=== PATIENT | female | born 1955 | race Two or more races ===

== ENCOUNTER 2025-01-19 12:39 | Inpatient (IN) | payer MEDICARE, OTHER ==
[~2025-01-19] VITALS: Ht 149.9 cm; Wt 56.7 kg
[2025-01-19 13:23] LABS: BASOPHILS # (AUTO) 0.5 K/UL (0.0-0.2); BASOPHILS % (AUTO) 3.8 % (0.0-2.0); DIFFERENTIAL COMMENT 0; EOSINOPHILS # (AUTO) 0.5 K/uL (0.0-0.7); EOSINOPHILS % (AUTO) 3.4 % (0.0-7.0); HEMATOCRIT 39.4 % (31.2-41.9); HEMOGLOBIN 13.1 g/dL (10.9-14.3); LYMPHOCYTES % (AUTO) 7.2 % (20.5-51.5); MEAN CORPUSCULAR HEMOGLOBIN 28.8 uug (24.7-32.8); MEAN CORPUSCULAR HGB CONC 33 g/dL (32.3-35.6); MEAN CORPUSCULAR VOLUME 86.5 fL (75.5-95.3); MONOCYTES # (AUTO) 1.1 K/uL (0.1-1.30); MONOCYTES % (AUTO) 7.8 % (0.0-11.0); NEUTROPHILS # (AUTO) 10.5 K/uL (1.8-8.9); NEUTROPHILS % (AUTO) 77.8 % (38.5-71.5); RED BLOOD CELL COUNT(AUTO) 4.55 MIL/uL (3.63-4.92); RED CELL DISTRIBUTION WIDTH 17.4 % (12.3-17.7); WHITE BLOOD COUNT (AUTO) 13.5 K/uL (3.8-11.8)
[2025-01-19 13:24] LABS: CALCIUM 10.3 mg/dL (8.5-10.1); CARBON DIOXIDE 29 mmol/L (21-32); CHLORIDE 95 mmol/L (98-107); CREATININE 5.4 mg/dL (0.6-1.3); GLUCOSE 92 mg/dL (74-106); POTASSIUM 4.2 mmol/L (3.5-5.1); SODIUM SERUM 136 mmol/L (136-145); UREA NITROGEN, BLOOD 37 mg/dL (7-18)
[2025-01-19 13:28] LABS: PLATELET COUNT (AUTO) 1121 K/uL (179-408)
[2025-01-19 13:36] LABS: ALANINE AMINOTRANSFERASE 13 U/L (14-59); ALBUMIN 4.4 g/dL (3.4-5.0); ALKALINE PHOSPHATASE 151 U/L (50-136); ASPARTATE AMINOTRANSFERASE 15 U/L (15-37); BILIRUBIN,DIRECT 0.1 mg/dL (0.0-0.2); BILIRUBIN,TOTAL 0.4 mg/dL (0.2-1.0); TOTAL PROTEIN, SERUM 7.9 g/dL (6.4-8.2)
[2025-01-19 13:50] LABS: LYMPHOCYTES % (MANUAL) 4 % (20-40); MONOCYTES % (MANUAL) 4 % (2-10); NEUTROPHILS % (MANUAL) 81 % (42-75)
[2025-01-19 13:51] LABS: ANISOCYTOSIS 1+; EOSINOPHILS % (MANUAL) 8 % (0-8); METAMYELOCYTES % 2 % (0-1); MYELOCYTES % 1 % (0-0); PLATELET ESTIMATE MARKED INCREASED
[2025-01-19] MEDS ORDERED: ONDA4VIA52 IM (13:58)
[2025-01-19] MEDS ORDERED: IPRA0.2S48 NEB (13:58)
[2025-01-19] MEDS ORDERED: SACU1TAB PO (13:58)
[2025-01-19] MEDS ORDERED: CARV12.52 PO (13:58)
[2025-01-19] MEDS ORDERED: FOLI0.8T2 PO (13:58)
[2025-01-19] MEDS ORDERED: AZEL137S7 EA NOSTRIL (13:58)
[2025-01-19] MEDS ORDERED: NILO150C PO (13:58)
[2025-01-19] MEDS ORDERED: CINA90TA4 PO (13:58)
[2025-01-19] MEDS ORDERED: EZET10TA15 PO (13:58)
[2025-01-19] MEDS ORDERED: ONDA4TAB11 PO (13:58)
[2025-01-19 14:04] LABS: NT-PRO BNP 42421 pg/mL (0-125)
[2025-01-19] MEDS ORDERED: AZITHROMYCIN 250 MG TABLET ONE (14:13)
[2025-01-19] MEDS: AZITHROMYCIN 250 MG TABLET PO ONE (14:17)
[2025-01-19] MEDS ORDERED: SACU1TAB7 PO (14:43)
[2025-01-19] MEDS ORDERED: PANT40TA49 PO (14:46)
[2025-01-19] MEDS ORDERED: SUCR500T PO (15:09)
[2025-01-19] MEDS ORDERED: IPRA21SP EA NOSTRIL (15:09)
[2025-01-19] MEDS ORDERED: REMEDY ESSENTIAL ZINC PASTE 113 GM TP PRN (15:45)
[2025-01-19] MEDS ORDERED: ZOLPIDEM 5 MG TABLET PO PRN (15:45)
[2025-01-19] MEDS ORDERED: ONDANSETRON 4 MG/2 ML VIAL IV PRN (15:45)
[2025-01-19] MEDS ORDERED: ACETAMINOPHEN 325 MG TABLET PO PRN (15:45)
[2025-01-19 16:09] LABS: THYROID STIMULATING HORMONE 3.921 mIU/mL (0.358-3.740)
[2025-01-19 16:30] VITALS: BP 116/49; TEMP 97.5; O2SAT 94
[2025-01-19] MEDS: CARVEDILOL 12.5 MG TABLET PO SCH (17:29)
[2025-01-19] MEDS: HEPARIN SODIUM,PORCINE 5,000 UNITS/ML VIAL SQ SCH (20:59)
[2025-01-19 22:37] VITALS: BP 109/50; TEMP 98.1; O2SAT 98
[2025-01-20] VITALS: BP 122/60; TEMP 98; O2SAT 98
[2025-01-20 05:00] VITALS: BP 130/47; TEMP 97.5; O2SAT 98
[2025-01-20] MEDS: PANTOPRAZOLE SODIUM 40 MG TABLET.DR PO SCH (06:15)
[2025-01-20 07:03] LABS: BASOPHILS # (AUTO) 0.4 K/UL (0.0-0.2); BASOPHILS % (AUTO) 3.1 % (0.0-2.0); DIFFERENTIAL COMMENT 0; EOSINOPHILS # (AUTO) 0.6 K/uL (0.0-0.7); EOSINOPHILS % (AUTO) 4.6 % (0.0-7.0); HEMATOCRIT 40.6 % (31.2-41.9); HEMOGLOBIN 13.2 g/dL (10.9-14.3); LYMPHOCYTES % (AUTO) 8.1 % (20.5-51.5); MEAN CORPUSCULAR HEMOGLOBIN 28.6 uug (24.7-32.8); MEAN CORPUSCULAR HGB CONC 33 g/dL (32.3-35.6); MEAN CORPUSCULAR VOLUME 87.8 fL (75.5-95.3); MONOCYTES # (AUTO) 0.8 K/uL (0.1-1.30); MONOCYTES % (AUTO) 6.7 % (0.0-11.0); NEUTROPHILS # (AUTO) 9.7 K/uL (1.8-8.9); NEUTROPHILS % (AUTO) 77.5 % (38.5-71.5); RED BLOOD CELL COUNT(AUTO) 4.62 MIL/uL (3.63-4.92); RED CELL DISTRIBUTION WIDTH 17.5 % (12.3-17.7); WHITE BLOOD COUNT (AUTO) 12.6 K/uL (3.8-11.8)
[2025-01-20 07:06] LABS: CALCIUM 9.3 mg/dL (8.5-10.1); CREATININE 7.2 mg/dL (0.6-1.3); MAGNESIUM 2.5 mg/dL (1.8-2.4); PHOSPHOROUS 7.1 mg/dL (2.5-4.9); POTASSIUM 5.8 mmol/L (3.5-5.1)
[2025-01-20 07:10] LABS: PLATELET COUNT (AUTO) 1074 K/uL (179-408)
[2025-01-20 07:35] VITALS: BP 135/36; TEMP 98.2; O2SAT 97
[2025-01-20] MEDS: EZETIMIBE 10 MG TABLET PO SCH (08:54)
[2025-01-20] MEDS: FOLIC ACID/VITAMIN B COMP W-C TABLET PO SCH (08:54)
[2025-01-20 09:40] LABS: EOSINOPHILS % (MANUAL) 4 % (0-8); LYMPHOCYTES % (MANUAL) 13 % (20-40); MONOCYTES % (MANUAL) 6 % (2-10); NEUTROPHILS % (MANUAL) 77 % (42-75)
[2025-01-20 09:41] LABS: PLATELET ESTIMATE INCREASED
[2025-01-20] MEDS ORDERED: AZIT500T4 PO (10:45)
[2025-01-20 11:33] VITALS: BP 116/68; TEMP 97.8; O2SAT 100
[2025-01-21] MEDS ORDERED: CINACALCET HCL 30 MG TABLET PO SCH (09:00)
== END 2025-01-20 13:00 | disposition home or self-care (01) | DRG 202 ==
LOC: ER 12:39 → TELE3 14:23
DX: J20.8 Acute bronchitis due to other specified organisms (principal); I21.A1 Myocardial infarction type 2; N18.6 End stage renal disease; C92.10 Chronic myeloid leukemia, BCR/ABL-positive, not having achieved remission; N02.B1 Recurrent and persistent immunoglobulin A nephropathy with glomerular lesion; R06.02 Shortness of breath; Z99.2 Dependence on renal dialysis; Z88.0 Allergy status to penicillin; Z88.1 Allergy status to other antibiotic agents; E78.5 Hyperlipidemia, unspecified; D63.8 Anemia in other chronic diseases classified elsewhere; Z88.8 Allergy status to other drugs, medicaments and biological substances; Z91.041 Radiographic dye allergy status
CPT/HCPCS: 36415; 71045; 83735; 84100; 84443; 84484; 85025; 85730; A4606; A4663; G0378; J1644; Q0144